=== PATIENT | female | born 1975 | race Two or more races ===

== ENCOUNTER 2021-05-18 15:18 | Emergency (ER) | payer MEDICARE, MEDICAID ==
[~2021-05-18] VITALS: Ht 154.9 cm; Wt 88.9 kg
[2021-05-18 19:37] LABS: Basophils # (auto) 0 10 ^3/uL (0-0.2); Basophils % (auto) 0.2 % (0.0-2.0); Eosinophils # (auto) 0 10 ^3/uL (0-0.8); Hematocrit 44.7 % (36.0-46.0); Hemoglobin 15.4 g/dL (12.2-16.2); Lymphocytes # (auto) 2.3 10 ^3/uL (0.4-5.4); Lymphocytes % (auto) 23.5 % (10.0-50.0); Mean Corpuscular Hemoglobin 31.8 pg (28.0-32.0); Mean Corpuscular Hgb Conc. 34.4 g/dL (32.0-36.0); Mean Corpuscular Volume 92.4 fL (80.0-100.0); Monocytes # (auto) 1.1 10 ^3/uL (0-1.3); Monocytes % (auto) 11.2 % (0.0-12.0); Neutrophils # (auto) 6.5 10 ^3/uL (1.6-8.6); Neutrophils % (auto) 65.1 % (37.0-80.0); Red Blood Cells 4.84 10^6/uL (4.0-5.20); Red Cell Distribution Width 13.9 % (11.8-14.3)
[2021-05-18 19:46] LABS: BUN/Creatinine Ratio 9.7; Calcium 9.9 mg/dL (8.5-10.1); Magnesium 2.2 mg/dL (1.6-2.6); Potassium 3.9 mmol/L (3.5-5.1)
[2021-05-18 19:49] LABS: Bilirubin, Total 0.7 mg/dL (0.2-1.0); Total Protein 8.8 g/dL (6.4-8.2)
[2021-05-19 11:32] VITALS: BP 116/63
== END 2021-05-19 12:03 | disposition home or self-care (01) ==
LOC: EDBD 15:18 → EDUNIT# 15:18 → ER 15:25
DX: R55 Syncope and collapse (principal); M25.561 Pain in right knee; W18.39XA Other fall on same level, initial encounter; Y93.89 Activity, other specified; Y92.89 Other specified places as the place of occurrence of the external cause; Y99.8 Other external cause status
CPT/HCPCS: 36415; 70450; 71045; 73560; 73610; 73700; 80053; 83735; 83880; 84484; 84702; 85025; 93005

== ENCOUNTER 2021-09-15 13:18 | Inpatient (IN) | payer MEDICARE, MEDICAID ==
[~2021-09-15] VITALS: Ht 170.2 cm; Wt 72.0 kg
[2021-09-15] MEDS ORDERED: SODIUM CHLORIDE 0.9% 1,000 ML IV ONE ×2 (13:30)
[2021-09-15] MEDS ORDERED: cefTRIAXone 1GM/50ML D5W 50 ML IV ONE (13:30)
[2021-09-15 14:21] LABS: Basophils # (auto) 0 10 ^3/uL (0-0.2); Basophils % (auto) 0.3 % (0.0-2.0); Eosinophils # (auto) 0 10 ^3/uL (0-0.8); Eosinophils % (auto) 0.3 % (0.0-7.0); Hematocrit 41.7 % (36.0-46.0); Hemoglobin 13.8 g/dL (12.2-16.2); Lymphocytes # (auto) 2.7 10 ^3/uL (0.4-5.4); Lymphocytes % (auto) 34.3 % (10.0-50.0); Mean Corpuscular Hemoglobin 32.2 pg (28.0-32.0); Mean Corpuscular Volume 97.6 fL (80.0-100.0); Monocytes # (auto) 0.7 10 ^3/uL (0-1.3); Monocytes % (auto) 9.2 % (0.0-12.0); Neutrophils # (auto) 4.3 10 ^3/uL (1.6-8.6); Neutrophils % (auto) 55.9 % (37.0-80.0); Nucleated Red Blood Cells % 0.1 %; Red Blood Cells 4.27 10^6/uL (4.0-5.20); Red Cell Distribution Width 12.9 % (11.8-14.3); White Blood Cell 7.8 10^3/uL (4.4-10.8)
[2021-09-15 14:38] LABS: Albumin 3.5 g/dL (3.4-5.0); BUN/Creatinine Ratio 12.7; Calcium 9.1 mg/dL (8.5-10.1); Potassium 3.6 mmol/L (3.5-5.1)
[2021-09-15 14:40] LABS: Bilirubin, Total 0.7 mg/dL (0.2-1.0); Total Protein 7.9 g/dL (6.4-8.2)
[2021-09-15 14:58] LABS: Urine Bacteria FEW /hpf (None Seen); Urine Blood Negative /uL (Negative); Urine Hyaline Cast MOD /lpf (0 - 2); Urine Mucus MODERATE (None Seen); Urine Specific Gravity 1.014 (1.001-1.035); Urine WBC 8 /hpf (0 - 5)
[2021-09-15 18:41] LABS: Alcohol, Urine < 3.0 mg/dL (0-10); Amphetamine Screen, Urine NEGATIVE (NEGATIVE); Barbiturate Scree,Urine NEGATIVE (NEGATIVE); Benzodiazephine Screen, Urine NEGATIVE (NEGATIVE); Cannabinoid Screen, Urine NEGATIVE (NEGATIVE); Cocaine Screen, Urine NEGATIVE (NEGATIVE); Opiate Scree,Urine NEGATIVE (NEGATIVE); Phencyclidine Screen, Urine NEGATIVE (NEGATIVE)
[2021-09-16 05:49] LABS: Basophils # (auto) 0 10 ^3/uL (0-0.2); Basophils % (auto) 0.5 % (0.0-2.0); Eosinophils # (auto) 0 10 ^3/uL (0-0.8); Eosinophils % (auto) 0.2 % (0.0-7.0); Hematocrit 38.1 % (36.0-46.0); Lymphocytes % (auto) 29.4 % (10.0-50.0); Mean Corpuscular Hemoglobin 32.5 pg (28.0-32.0); Mean Corpuscular Volume 95.8 fL (80.0-100.0); Monocytes # (auto) 1.1 10 ^3/uL (0-1.3); Monocytes % (auto) 11.1 % (0.0-12.0); Neutrophils # (auto) 5.9 10 ^3/uL (1.6-8.6); Neutrophils % (auto) 58.8 % (37.0-80.0); Red Blood Cells 3.98 10^6/uL (4.0-5.20); Red Cell Distribution Width 12.8 % (11.8-14.3); White Blood Cell 10.1 10^3/uL (4.4-10.8)
[2021-09-16 06:09] LABS: BUN/Creatinine Ratio 19.5; Calcium 8.8 mg/dL (8.5-10.1); Potassium 3.6 mmol/L (3.5-5.1)
[2021-09-16 06:19] LABS: Bilirubin, Total 0.6 mg/dL (0.2-1.0)
[2021-09-16] MEDS ORDERED: ENOXAPARIN SOD 40 MG/0.4 ML SYRINGE SC SCH (10:00)
[2021-09-16 10:07] VITALS: BP 184/155
[2021-09-16 12:26] VITALS: BP 98/87
[2021-09-16] MEDS ORDERED: levoFLOXacin 500MG 100 ML IV ONE (14:15)
[2021-09-16] MEDS ORDERED: levoFLOXacin 500MG 100 ML IV SCH (14:15)
[2021-09-16] MEDS ORDERED: LORA0.5T20 PO (14:25)
[2021-09-16] MEDS ORDERED: LACT10SO3 PO (14:25)
[2021-09-16] MEDS ORDERED: DIVA1TAB59 PO (14:25)
[2021-09-16] MEDS ORDERED: BENZ2TAB2 PO (14:25)
[2021-09-16] MEDS ORDERED: OLAN5TAB (14:25)
[2021-09-16] MEDS ORDERED: HALO20TA PO (14:25)
[2021-09-16 16:21] VITALS: BP 97/60
[2021-09-16] MEDS: APIXABAN 5 MG TAB PO SCH ×2 (20:18→22:00)
[2021-09-16] MEDS ORDERED: MIDAZOLAM HCL 2MG/2ML 2ml VIAL (1mg/ml) IM PRN (21:45)
[2021-09-16] MEDS ORDERED: MIDAZOLAM HCL 2MG/2ML 2ml VIAL (1mg/ml) IV PRN ×2 (21:45)
[2021-09-16 22:00] VITALS: BP 98/60
[2021-09-16] MEDS ORDERED: HALOPERIDOL 5 MG TAB PO SCH (22:00)
[2021-09-16] MEDS: BENZTROPINE MESY 0.5 MG TAB PO SCH (22:33)
[2021-09-16] MEDS: traZODone HCL 50 MG TAB PO SCH (22:34)
[2021-09-17 05:00] VITALS: BP 99/71
[2021-09-17 09:00] VITALS: BP 99/54
[2021-09-17] MEDS ORDERED: levoFLOXacin 500MG 100 ML IV SCH (10:00)
[2021-09-17] MEDS: BENZTROPINE MESY 0.5 MG TAB PO SCH ×2 (12:57→21:55)
[2021-09-17] MEDS: APIXABAN 5 MG TAB PO SCH (12:58)
[2021-09-17 13:00] VITALS: BP 108/77
[2021-09-17] MEDS: OLANZapine 5 MG TAB PO SCH (13:30)
[2021-09-17] MEDS ORDERED: FLUCONAZOLE 100 MG TAB PO ONE (14:15)
[2021-09-17 17:00] VITALS: BP 87/57
[2021-09-17] MEDS: traZODone HCL 50 MG TAB PO SCH (21:56)
[2021-09-18] MEDS: APIXABAN 5 MG TAB PO SCH ×3 (00:06→22:34)
[2021-09-18 01:40] VITALS: BP 116/56
[2021-09-18 05:36] VITALS: BP 93/47
[2021-09-18 08:57] VITALS: BP 124/80
[2021-09-18 13:00] VITALS: BP 108/77
[2021-09-18] MEDS: BENZTROPINE MESY 0.5 MG TAB PO SCH ×2 (13:03→22:33)
[2021-09-18] MEDS: OLANZapine 5 MG TAB PO SCH (13:04)
[2021-09-18] MEDS: FLUCONAZOLE 100 MG TAB PO SCH (13:05)
[2021-09-18 16:25] VITALS: BP 111/73
[2021-09-18 22:13] VITALS: BP 123/75
[2021-09-18] MEDS: traZODone HCL 50 MG TAB PO SCH (22:34)
[2021-09-19] VITALS (7 sets, daily range): BP systolic 76–107; BP diastolic 49–77
[2021-09-19 07:05] LABS: Basophils # (auto) 0 10 ^3/uL (0-0.2); Basophils % (auto) 0.2 % (0.0-2.0); Eosinophils # (auto) 0.1 10 ^3/uL (0-0.8); Eosinophils % (auto) 0.7 % (0.0-7.0); Hematocrit 38.1 % (36.0-46.0); Hemoglobin 12.6 g/dL (12.2-16.2); Lymphocytes # (auto) 4.6 10 ^3/uL (0.4-5.4); Lymphocytes % (auto) 50.8 % (10.0-50.0); Mean Corpuscular Hemoglobin 32.2 pg (28.0-32.0); Mean Corpuscular Hgb Conc. 33.2 g/dL (32.0-36.0); Monocytes # (auto) 0.6 10 ^3/uL (0-1.3); Neutrophils # (auto) 3.8 10 ^3/uL (1.6-8.6); Neutrophils % (auto) 41.3 % (37.0-80.0); Nucleated Red Blood Cells % 0.1 %; Red Blood Cells 3.93 10^6/uL (4.0-5.20); Red Cell Distribution Width 12.6 % (11.8-14.3); White Blood Cell 9.1 10^3/uL (4.4-10.8)
[2021-09-19 07:10] LABS: BUN/Creatinine Ratio 14.3; Calcium 8.8 mg/dL (8.5-10.1); Potassium 3.4 mmol/L (3.5-5.1)
[2021-09-19 08:13] LABS: Folate (Folic Acid) 10.74 ng/mL (5.38-24)
[2021-09-19] MEDS: FLUCONAZOLE 100 MG TAB PO SCH (10:04)
[2021-09-19] MEDS: BENZTROPINE MESY 0.5 MG TAB PO SCH (10:04)
[2021-09-19] MEDS: OLANZapine 5 MG TAB PO SCH (10:05)
[2021-09-19] MEDS: APIXABAN 5 MG TAB PO SCH (10:05)
== END 2021-09-19 18:35 | disposition home or self-care (01) | DRG 71 ==
LOC: EDBD 13:18 → ER 13:27 → TELE 17:15 → TELE-WESTW 09-16 09:35
PROVIDERS: ADMIT Registered Nurse; ATTEND Internal Medicine Nephrology
DX: G93.41 Metabolic encephalopathy (principal); D68.59 Other primary thrombophilia; N39.0 Urinary tract infection, site not specified; I48.20 Chronic atrial fibrillation, unspecified; G40.209 Localization-related (focal) (partial) symptomatic epilepsy and epileptic syndromes with complex partial seizures, not intractable, without status epilepticus; F20.9 Schizophrenia, unspecified; F31.9 Bipolar disorder, unspecified; I10 Essential (primary) hypertension; F79 Unspecified intellectual disabilities; Z20.822 Contact with and (suspected) exposure to COVID-19; S92.414A Nondisplaced fracture of proximal phalanx of right great toe, initial encounter for closed fracture; W18.39XA Other fall on same level, initial encounter; Z79.899 Other long term (current) drug therapy; Z88.0 Allergy status to penicillin; Y93.89 Activity, other specified; Y92.89 Other specified places as the place of occurrence of the external cause; Y99.8 Other external cause status
CPT/HCPCS: 36415; 70450; 70551; 71045; 73630; 80048; 80053; 80307; 81001; 81025; 82306; 82607; 82746; 83605; 84443; 85025; 87040; 87081; 87086; 87088; 93005; 93306; 95819; 96365; 96372; 97116; 97163; 97530; G0378; J0696; J1956